=== PATIENT | female | born 1980 | race Caucasian/White ===

== ENCOUNTER 2018-01-11 10:29 | Emergency (ER) | payer BC ==
[~2018-01-11] VITALS: Ht 160 cm; Wt 111.5 kg
[~2018-01-11 10:29] MED LIST: CLEOCIN300 MG PO; ZOLOFT50 MG PO
[2018-01-11 11:21] LABS: HEMATOCRIT 37.5 % (36.0-46.0); HEMOGLOBIN 12.5 G/DL (11.9-15.5); MCH 27.7 PG (29.0-34.0); MCHC 33.3 G/DL (30.0-36.0); MCV 83.1 FL (83-99); PLATELET COUNT 264 K/uL (156-360); RBC DIS.WIDTH-SD 42.2 % (39-53); RED BLOOD COUNT 4.51 M/uL (3.80-5.20); WHITE BLOOD COUNT 8.2 K/uL (4.1-10.2)
[2018-01-11 11:30] LABS: CHLORIDE 105 mEq/L (99-109); POTASSIUM 4.4 mEq/L (3.7-5.4); SODIUM 139 mEq/L (136-147)
[2018-01-11 11:32] LABS: GLUCOSE 104 mg/dL (70-99)
[2018-01-11 11:36] LABS: CREATININE 0.9 mg/dL (0.6-1.3); GFR ESTIMATE (CALCULATED) > 59 mL/min/
[2018-01-11 11:37] LABS: UREA NITROGEN (BUN) 9 mg/dL (9-23)
[2018-01-11] MEDS ORDERED: PRINZIDE 10-121 EACH PO (12:07)
[2018-01-11 12:13] LABS: TROP-I INTERPRETATION NEGATIVE; TROPONIN-I < 0.01 ng/mL (0.0-0.30)
[2018-01-11 12:26] VITALS: BP 162/84
== END 2018-01-11 12:28 | disposition home or self-care (01) ==
LOC: EME 10:29
DX: I10 Essential (primary) hypertension (principal); M62.838 Other muscle spasm; F32.9 Major depressive disorder, single episode, unspecified; Z88.0 Allergy status to penicillin; Z88.6 Allergy status to analgesic agent; Z88.5 Allergy status to narcotic agent
CPT/HCPCS: 71046; 80048; 84484; 85027; 93005; 99281; 99284